=== PATIENT | female | born 2005 | race Caucasian/White ===

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

== ENCOUNTER 2023-02-02 12:24 | Outpatient (CLI) | payer OTHER, SELFPAY | END 2023-02-02 12:25 | disposition home or self-care (01) | PROVIDERS: PCP Physician Assistant; Visit Provider Obstetrics & Gynecology | DX: N83.209 Unspecified ovarian cyst, unspecified side (principal); Z01.818 Encounter for other preprocedural examination | CPT/HCPCS: 36415; 86850; 86900; 86901 ==

== ENCOUNTER 2023-02-07 01:36 | Day surgery (SDC) | payer OTHER, SELFPAY ==
[2023-01-31 15:41] VITALS: BMI 21.1
--- NOTE | 2023-01-31 15:44 | PC.NURSE ---
Report to the Outpatient Waiting Room, entrance under the green pavilion located off [facility], at time 1:00 on date 02/07/23. Planned Procedure Time: 3:00. Time changes happen often and if your time is changed the preop area will call you the afternoon before. - You and your visitor will be asked to self-screen and do not enter if you have any COVID symptoms. - A mask is optional within the hospital at this time. Patients may have clear liquids (water, carbonated beverages, clear teas, apple juice) until 3 hours prior to surgery with a maximum of 20 ounces. - No food from midnight until time of surgery Take the following medications with a SIP of water the morning of surgery: NONE DO NOT STOP ANY OF YOUR OTHER PRESCRIPTION MEDICATIONS PRIOR TO SURGERY ?EXCEPT THE FOLLOWING Medications to discontinue per physician: IBUPROFEN Date to take last dose: PER DR. DOHERTY Please no make-up, nail kiswahili, hairspray, perfume, deodorant, or body powder the day of surgery. No jewelry (including any body piercings) or valuables the day of surgery, leave them at home. Please take a shower or bath the night before, or the morning of, surgery with an antibacterial soap. Wear comfortable, loose fitting clothing. - Jewelry must be removed prior to entering the operating room. Rings and piercings that are not removed may be cut off. - The hospital will not accept responsibility for valuables. - Please leave all valuables, including medications, at home the day of surgery. If you are going home after surgery, a licensed hazmat truck driver must drive you home. - NO public transportation without another adult if you receive anesthesia. - We recommend that an adult stay with you for 24 hours following discharge. - We also recommend that you do not drive, make important decision, drink alcoholic beverages, or take any drugs that were not prescribed by your health care provider for at least 24 hours after your discharge time. Follow any additional instructions given to you from your surgeon. If you or anyone in your household have experienced Covid symptoms in the past week, please notify your surgeon or the nurse liaison at the phone number below for possible testing. Telephone instructions given to SARITA WALKER and asked if any additional questions and then verbalized understanding. Patient advised to call surgeon office or pre surgery nurse liaison [phone] if any additional questions.
[2023-02-07] VITALS (10 sets, daily range): BP systolic 97–110; BP diastolic 58–81; PULSE 51–81; RESP 12–20; TEMP 36.5; O2SAT 98–100
--- NOTE | 2023-02-07 12:12 | PM.IMHP ---
H&P: HPI History of Present Illness Date/Time: 02/07/23 12:12 Chief Complaint: Pain Narrative: 17 y/o nulligravida with a Kyleena IUD in place. She has had trouble with persistent pelvic pain. Ultrasound exam shows bilateral simple appearing adnexal cysts. Because of the longstanding nature of her pain, she is interested in surgical evaluation of her problem. Review of Systems Review of Systems: All systems reviewed & are unremarkable except as noted in HPI and below PMFSH Surgical History Surgical History History of tonsillectomy Social History Social History Smoking status: Never smoker Alcohol intake: never Substance use: never Substance use type: does not use Living arrangements: with family Spiritual care concerns: No Meds Home Medications and Allergies Home Medications Medication Instructions Recorded Confirmed Type levonorgestrel 17.5 mcg/24 hrs 1 device intrauterine ONCE 01/24/22 01/31/23 History (5yrs) 19.5mg intrauterine device (Kyleena) ibuprofen 400 mg tablet 400 mg PO Q6H PRN Pain 01/31/23 01/31/23 History Allergies Allergy/AdvReac Type Severity Reaction Status Date / Time No Known Allergies Allergy Verified 01/31/23 15:40 Exam Const: Orientation/consciousness: patient oriented x3 Other: Well-developed, well-nourished female in no acute distress. Neck: Thyroid: thyroid normal Lymphatic: no lymphadenopathy noted (in neck, axilla or inguinal nodes) Resp: Effort & Inspection: normal respiratory effort Auscultation: clear to auscultation bilaterally Cardio: Rate: regular rate Rhythm: regular rhythm Heart sounds: S1 normal heart sound present and S2 normal heart sound present GI: Other: ABD: Soft, nontender, nondistended. No guarding or rebound tenderness. No hepatosplenomegaly. : General: Yes no CVA tenderness Other: External genitalia: normal female hair distribution, without lesion. Urethral meatus: no lesion, non prolapsed. Bladder: no mass, nontender Vagina: well-estrogenized, without lesion or discharge. No cystocele or rectocele. Cervix: no lesion or discharge. Uterus: small, anteverted, freely mobile, nontender Adnexa: no mass or tenderness. Anus/perineum: no lesions, nontender Back/Spine/Pelvis: Back: no CVA tenderness Skin: General skin exam: normal color and no rashes or lesions noted Neuro: General: patient oriented x3 Extrem: Other: Extremities: nontender with no edema Psych: Mental Status: mental status grossly normal Affect: normal affect Assessment and Plan Assessment and plan (1) Pelvic pain: Code(s): R10.2 - Pelvic and perineal pain Status: Acute Assessment and Plan: A: Persistent pelvic pain. P: We reviewed medical as well as surgical approaches, and she prefers the latter. Specifically, I have offered her diagnostic laparoscopy with possible bilateral ovarian cystectomies. She understands risks of surgery to include risks of anesthesia, risks of pain, infection, bleeding, blood products, thromboembolic phenomena and damage to adjacent structures such as bowel, bladder, ureters, blood vessels and nerves. She understands all these risks and elects to proceed with surgery.
--- NOTE | 2023-02-07 13:25 | WPDHPUPDATE1 ---
History and Physical Update Update Date/Time: 02/07/23 13:25 History and Physical has been reviewed, including an updated exam of the patient. There are NO changes in the patient's condition. Risks, benefits, and alternatives have been discussed and questions answered. Patient agrees to proceed with procedure.
[2023-02-07] MEDS: LACTATED RINGERS 1,000 ML 30 ML IV CONT ×2 (13:30→15:55)
[2023-02-07] MEDS: ACETAMINOPHEN 500 MG TABLET 1000 MG PO (13:30)
[2023-02-07] MEDS: KETOROLAC 15 MG/ML VIAL (*BKC) IV PUSH (13:30)
--- NOTE | 2023-02-07 13:39 | WPDANESEPPF ---
Anes - Initial Pre Proc Eval Procedure: Operation Date: 02/07/23 15:00 Proposed Procedures p Diagnostic Laparoscopy, Possible Bilateral Ovarian Cystectomy - James Lawrence MD Date/Time: 02/07/23 13:39 Surgeon: James Lawrence MD Pre Op Diagnosis: Pelvic Pain, Bilateral Ovarian Cyst Patient Data Age: 17 Gender: F Height: 1.61 m Weight: 54.9 kg Allergies Allergy/AdvReac Type Severity Reaction Status Date / Time No Known Allergies Allergy Verified 01/31/23 15:40 Home Medications Medication Instructions Recorded Confirmed Type levonorgestrel 17.5 mcg/24 hrs 1 device intrauterine ONCE 01/24/22 01/31/23 History (5yrs) 19.5mg intrauterine device (Kyleena) ibuprofen 400 mg tablet 400 mg PO Q6H PRN Pain 01/31/23 01/31/23 History Patient hx anesthesia problems: none Family hx anesthesia problems: none Results Review: All pre-operative results and documents have been reviewed as part of the pre-operative evaluation. [facility], [facility] Surgical History Surgical History History of tonsillectomy Social History Social History Smoking status: Never smoker Alcohol intake: never Substance use: never Substance use type: does not use Living arrangements: with family Spiritual care concerns: No Anes - Eval Final PreProcedure Day of Procedure 02/07/23 13:39 Patient weight: normal Heart: regular rate and rhythm Lungs: clear to auscultation Airway: Mallampati scale class 1 Neurological: alert and oriented Last oral intake: >/= 8 hours ASA classification: I Emergent: no Anesthetic plan: proceed Anesthesia type and monitoring: general ETT and standard monitoring Results Review: All pre-operative results and documents have been reviewed as part of the pre-operative evaluation. Informed Consent: The patient's anesthetic plan and its attendant risks and benefits were discussed with the patient/family/POA. Questions were solicited and answers provided to the satisfaction of the patient/family/POA.
[2023-02-07] MEDS: SCOPOLAMINE 1.5 MG PATCH TRANSDERM (14:13)
--- NOTE | 2023-02-07 15:50 | W.PM.PROC2 ---
Procedure Note - Detailed Date of Procedure 02/07/23 Pre-op Diagnosis Pelvic pain Post-op Diagnosis Same Procedure Performed Diagnostic laparoscopy Surgeon James Lawrence MD Anesthesia General Findings On speculum exam, the IUD strings were noted at the external cervical os. On laparoscopy, the uterus, bilateral ovaries, bilateral Fallopian tubes, bilateral round and uterosacral ligaments, anterior and posterior cul de sac all unremarkable. Vermiform appendix not seen. Liver and gallbladder unremarkable. Large bowel seemed very full of stool. Description of Procedure The patient was taken to the operating room where general endotracheal anesthesia was administered. She was prepared and draped in the usual sterile fashion in the dorsal lithotomy position. The bladder was drained with a red rubber catheter. A sterile speculum was inserted into the vagina and the anterior lip of the cervix was grasped with a single-toothed tenaculum. The acorn uterine manipulator was placed. The speculum was withdrawn. Gloves were changed and attention was turned to the abdomen. An infraumbilical skin incision was made with a scalpel. The abdomen was tented and a 5 millimeter bladeless trocar trocar was advanced under direct laparoscopic visualization. Pneumoperitoneum was administered using carbon dioxide gas. A survey of the pelvis and abdomen yielded the findings noted above. Hemostasis was excellent. The trocar was withdrawn and the gas was allowed to escape. The skin incision was reapproximated using 4-0 Vicryl in interrupted subcuticular fashion. Dermaflex was applied externally. The vaginal instrumentation was withdrawn and hemostasis was excellent here as well. Sponge, lap, needle and instrument counts were correct. The patient was awakened and taken to recovery in stable condition. I was present and scrubbed through the entire procedure. Estimated Blood Loss 5 Drains No Packing No Pathology None sent Complications None Condition Stable Disposition PACU
[2023-02-07] MEDS: fentaNYL CITRATE INJ (*CRX) 100 MCG/2 ML VIAL 25 MCG IV PUSH ×4 (16:11→16:33)
[2023-02-07] MEDS: oxyCODONE HCL (*CRX) 5 MG TAB IR PO (17:11)
== END 2023-02-07 17:45 | disposition home or self-care (01) ==
PROVIDERS: PCP Physician Assistant; Visit Provider Obstetrics & Gynecology
PROC: (CPT 49320; principal; 2023-02-07 15:00)
DX: R10.2 Pelvic and perineal pain (principal); Z97.5 Presence of (intrauterine) contraceptive device
CPT/HCPCS: 49320; 36415; 86850; 86900; 86901; A9270; J1100; J1885; J2250; J2405; J2704; J3010; J7120

== ENCOUNTER 2024-01-09 19:32 | Emergency (ER) | payer OTHER, SELFPAY ==
--- NOTE | ~2024-01-09 | XR_ITS ---
XR foot RT min 3V Ordering provider: Shabbir Ceja MD History: . injury, pain, swelling . Comparison: None. FINDINGS: BONES: No acute fracture or dislocation. JOINT SPACES: Normal. No tarsal coalition. SOFT TISSUES: Normal. IMPRESSION: No acute osseous abnormality of the right foot. Reviewed, dictated and finalized at location A.
[2024-01-09 19:37] VITALS: BP 108/53; PULSE 86; RESP 15; TEMP 36.2; O2SAT 100
--- NOTE | 2024-01-09 20:03 | ED.GENADULT ---
HPI - General Adult General Chief complaint: Extremity Injury, Lower Stated complaint: r foot pain Time Seen by Provider: 01/09/24 19:50 History of Present Illness HPI narrative: 18-year-old female presents to the emergency department for evaluation for right foot pain. patient reports on Sunday she dropped a heavy Tote on her foot. Patient states that she did try to tolerate the pain but feels that has been worsening. Related Data Home Medications Medication Instructions Recorded Confirmed levonorgestrel 17.5 mcg/24 hr (up 1 device intrauterine ONCE 01/24/22 02/07/23 to 5 yrs) 19.5mg intrauterine device (Kyleena) ibuprofen 400 mg tablet 400 mg PO Q6H PRN Pain 01/31/23 02/07/23 Allergies Allergy/AdvReac Type Severity Reaction Status Date / Time No Known Allergies Allergy Verified 01/09/24 19:33 Review of Systems Review of Systems: All systems reviewed & are unremarkable except as noted in HPI and below PMFSH Surgical History Surgical History History of tonsillectomy Social History Social History Smoking status: Never smoker Alcohol intake: never Substance use: never Substance use type: does not use Living arrangements: with family Spiritual care concerns: No Exam Narrative: APPEARANCE: Well appearing, no pain, no distress, well-nourished. HEAD: normocephalic, atraumatic. EYES: PERRLA/EOMI, conjunctivae clear. NOSE: Normal no drainage EARS:TMS clear with good light reflex. THROAT: Pharynx clear, no exudate. NECK: Supple. No adenopathy, no masses. RESPIRATORY: Airway patent, respirations nonlabored. Clear to auscultation bilaterally, no rales, rhonchi, wheezing. CARDIOVASCULAR: Regular rate and rhythm without murmurs rubs or gallops. ABDOMINAL: Soft, nontender, nondistended, normal bowel sounds MUSCULOSKELETAL: Moves all extremities. Strength/ROM intact, No edema, No calf tenderness. NEURO: Alert. Cranial nerves II through XII intact. Good gait. Good coordination SKIN: Warm, dry. Normal Color Course Vital Signs Vital signs: Vital Signs Temperature 97.2 F L 01/09/24 19:37 Pulse Rate 86 01/09/24 19:37 Respiratory Rate 15 01/09/24 19:37 Blood Pressure 108/53 L 01/09/24 19:37 Pulse Oximetry 100 01/09/24 19:37 Oxygen Delivery Room Air 01/09/24 19:37 Temperature 97.2 F L 01/09/24 19:37 Pulse Rate 86 01/09/24 19:37 Respiratory Rate 15 01/09/24 19:37 Blood Pressure 108/53 L 01/09/24 19:37 Pulse Oximetry 100 01/09/24 19:37 Oxygen Delivery Room Air 01/09/24 19:37 Medical Decision Making MDM Narrative Medical decision making narrative: 18-year-old female presents emergency department for evaluation for foot pain. X-ray was negative for fracture dislocation. Patient was provided a hard sole shoe. Patient declined crutches for limited weight-bearing. Patient was advised to take Tylenol and ibuprofen for pain control. All questions concerns were addressed. Differential Diagnosis Differential Diagnosis: Foot fracture, foot contusion Vital Signs Vital Signs: Vital Signs Temperature 97.2 F L 01/09/24 19:37 Pulse Rate 86 01/09/24 19:37 Respiratory Rate 15 01/09/24 19:37 Blood Pressure 108/53 L 01/09/24 19:37 Pulse Oximetry 100 01/09/24 19:37 Oxygen Delivery Room Air 01/09/24 19:37 Temperature 97.2 F L 01/09/24 19:37 Pulse Rate 86 01/09/24 19:37 Respiratory Rate 15 01/09/24 19:37 Blood Pressure 108/53 L 01/09/24 19:37 Pulse Oximetry 100 01/09/24 19:37 Oxygen Delivery Room Air 01/09/24 19:37 Discharge Plan Discharge Clinical Impression: Contusion of foot Patient Disposition: Home, Self-Care Condition: Stable Instructions: Antibiotic Form, Foot Contusion (ED) Additional Instructions: Tylenol and ibuprofen for pain control. Postop shoe for comfort. Crutches for osman
== END 2024-01-09 20:46 | disposition home or self-care (01) ==
PROVIDERS: Emergency Provider Emergency Medicine; PCP Physician Assistant
DX: S90.31XA Contusion of right foot, initial encounter (principal); X58.XXXA Exposure to other specified factors, initial encounter
CPT/HCPCS: 73630; 99283

== ENCOUNTER 2025-01-11 20:22 | Emergency (ER) | payer OTHER, SELFPAY ==
[2025-01-11] VITALS (16 sets, daily range): BP systolic 91–121; BP diastolic 56–76; PULSE 92–96; RESP 17–20; TEMP 36.7–37.2; O2SAT 98–100
--- NOTE | ~2025-01-11 | CT_ITS ---
CT abdomen pelvis w con Clinical History: LLQ abdominal pain . Comparison: None Technique: Axial images lung bases to symphysis pubis 100 mL Omnipaque Coronal, sagittal reformats CT images acquired with automatic exposure control for dose reduction DLP: 597 mGy-cm Findings: Lung bases: Clear. Visualized heart and pericardium: Unremarkable. Liver: Periportal edema, nonspecific but possibly overhydration. Gallbladder: Wall thickening but contracted. Spleen: Unremarkable. Pancreas: Unremarkable. Adrenal glands: Unremarkable. Kidneys: Right kidney- No hydronephrosis. No renal stones. Left kidney- No hydronephrosis. No renal stones. Distal esophagus/stomach: Unremarkable. Small bowel loops: Normal caliber and wall thickness. Colon: Normal caliber and wall thickness. Normal RLQ appendix. Nodes: No enlarged nodes. Peritoneum: No ascites. No free air. Urinary bladder: Unremarkable. Uterus: Unremarkable. Adnexa: No masses. Tampon within vaginal vault. Bones: No acute bony abnormality. Soft tissues: Unremarkable. Aorta: No aneurysm or dissection. IVC: Unremarkable. Main portal vein/SMV/splenic vein: Patent. IMPRESSION: 1. No definite acute abnormality. Reviewed, dictated and finalized at location R.
--- OUTSIDE RECORDS SUMMARY | 2025-01-11 20:24 | XMS_ITS | Clinical Summary ---
Author Organization [facility] Address [address] [place] [id number] Care Team Providers Care Sweatband Separator Name Role Phone Heather Barone Primary Care Provider [phone] Allergies No known active allergies Medications No known medications Social History Tobacco Use Types Packs/Day Years Used Date Smoking Tobacco: Never Assessed Comments No Sex and Gender Information Value Date Recorded Sex Assigned at Not on file Legal Sex Female 7:31 PM CDT Gender Identity Not on file Sexual Orientation Not on file Last Filed Vital Signs Vital Sign Reading Time Taken Comments Blood Pressure 123/74 08/20/2023 8:44 AM CDT Pulse 84 08/20/2023 8:44 AM CDT Temperature 36.6 C (97.9 F) 08/20/2023 8:44 AM CDT Respiratory Rate 19 08/20/2023 8:44 AM CDT Oxygen Saturation 100% 08/20/2023 8:44 AM CDT Inhaled Oxygen Concentration - - Weight 54 kg (119 lb) 08/20/2023 8:44 AM CDT Height 160 cm (5' 3) 08/20/2023 8:44 AM CDT Body Mass Index 21.08 08/20/2023 8:44 AM CDT Plan of Treatment Health Maintenance Due Date Last Done Comments Cervical Cancer Screening Pap Smear (Age 21 to 29) Every 3 Years 2003 Cervical Cancer Screening 2003 Annual Physical 2006 Meningococcal B Vaccine (1 of 2 - Standard) 2019 Hepatitis C 2021 HPV Vaccines (2 - 3-dose series) 12/30/2021 12/02/2021 DTaP, Tdap and Td Vaccines (7 - Td or Tdap) 12/02/2024 12/02/2014, 09/16/2008, 06/03/2004, Additional history exists COVID-19 Vaccine ( season) 2024 11/15/2020, 10/25/2020 Hepatitis B Vaccines Completed 2003, 2003, 2003 Meningococcal Vaccine Completed 02/24/2021, 015 Pneumococcal Vaccine: Pediatrics (0 to 5 Years) and At-Risk Patients (6 to 49 Years) Aged Out No longer eligible based on patient's age to complete this topic RSV Immunizations Under 20 Months Aged Out No longer eligible based on patient's age to complete this topic Insurance [employer]SE[employer] OF [employer] [facility] Care Teams Sweatband Separator Relationship Specialty Start Date End Date Heather Barone PA [address], [place] [id number] PCP - General FAMILY PRACTICE 08/20/23
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
--- OUTSIDE RECORDS SUMMARY | 2025-01-11 20:24 | XMS_ITS | Clinical Summary ---
Author Organization [facility] Address [address] [place] [address] Care Team Providers Care Diesel Mechanic Apprentice Name Role Phone Dixie Kelley MD Primary Care Provider [phone] Source Comments [facility],non-owned Affiliates and Associated Physician Practices is amultiple site organization consisting of ambulatory clinics and hospital sitesin [place], [place], [place] and [place]. This disclosure is being madepursuant to the Care Everywhere program and may not contain all information available regarding this patient. Last updated 18.[facility] Allergies No known active allergies Medications * Be aware that medications may not be up to date on this document. Alwaysverify current medications with the patient. acetaminophen (TYLENOL) 160 MG/5ML SOLN solution Take 15.65 mL by mouth every 6 hours as needed for Headache. 09/14/2014 Active Family History Medical History Relation Name Comments Breast Cancer at or under age 50 Mother Relation Name Status Comments Mother Social History Tobacco Use Types Packs/Day Years Used Date Smoking Tobacco: Passive Smo ke Exposure - Never Smoker Alcohol Use Standard Drinks/Week Comments No 0 (1 standard drink = 0.6 oz pur e alcohol) Comments No Sex and Gender Information Value Date Recorded Sex Assigned at Not on file Legal Sex Female 2:34 PM CDT Gender Identity Not on file Sexual Orientation Not on file Last Filed Vital Signs Vital Sign Reading Time Taken Comments Blood Pressure 100/62 06/27/2016 4:41 PM HOSPICE RN Pulse 63 06/27/2016 4:41 PM HOSPICE RN Temperature 36.7 C (98.1 F) 06/27/2016 4:41 PM HOSPICE RN Respiratory Rate 16 06/27/2016 4:41 PM HOSPICE RN Oxygen Saturation 99% 06/27/2016 4:41 PM HOSPICE RN Inhaled Oxygen Concentration - - Weight 52.6 kg (116 lb) 06/27/2016 4:41 PM HOSPICE RN Height 157.5 cm (5' 2) 06/27/2016 4:41 PM HOSPICE RN Body Mass Index 21.22 06/27/2016 4:41 PM HOSPICE RN Plan of Treatment Health Maintenance Due Date Last Done Comments HIV SCREENING 2018 HPV VACCINE (1 - 3-dose series) 2018 CHLAMYDIA/GONORRHEA SCREENING 2019 MENINGOCOCCAL (Group B) VACC INE SHARED DECISION-MAKING (1 of 2 - Standard) 2019 HEPATITIS C SCREENING 05/27/2021 DTAP/TDAP/TD VACCINES (1 - Tdap) 2022 HEPATITIS B VACCINE (1 of 3 - 19+ 3-dose series) 2022 DEPRESSION SCREENING 04/23/2024 COVID-19 VACCINE (1 - 2023-2 5 season) 2024 INFLUENZA VACCINE (#1) 2024 ZOSTER VACCINE (1 of 2) 2053 HIB VACCINE Aged Out No longer eligi ble based on patient's age to complete this topic MENINGOCOCCAL GROUPS A/C/Y/W VACCINE Aged Out No longer eligible b ased on patient's age to complete this topic PNEUMOCOCCAL VACCINE Aged Out No long er eligible based on patient's age to complete this topic Insurance HO Care Teams Diesel Mechanic Apprentice Relationship Specialty Start Date End Date Dixie Kelley MD NPI: [id number] [place] [address] [phone] PCP - General Family Medicine 09/13/14
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
[2025-01-11] MEDS: ONDANSETRON INJ 4 MG/2 ML VIAL IV PUSH (21:49)
[2025-01-11] MEDS: SODIUM CHLORIDE 0.9% IV 1,000 ML 999 ML IV CONT (21:49)
[2025-01-11 22:00] LABS: Hematocrit 32.3 % (37.0-47.0); Hemoglobin 11.1 g/dL (12.0-15.0); Immature Granulocyte Percent A 0.3 % (0-0.5); Lymphocytes Absolute Auto 1.88 K/mm3 (0.9-3.2); Mean Corpuscular HGB Conc 34.4 g/dl (32-36); Mean Corpuscular Hemoglobin 30.0 pg (26-34); Mean Corpuscular Volume 87.3 fl (80-100); Nucleated Red Blood Cells Absolute Auto 0.000 K/mm3 (0.0-0.012); Nucleated Red Blood Cells Perc 0.0 % (0.0-0.2); Platelet Count Result 166 k/mm3 (150-375); Red Blood Count 3.70 M/mm3 (4.2-5.4); White Blood Count 7.5 K/mm3 (4.5-10.0)
[2025-01-11 22:02] LABS: Add Urine Microscopic? NO; Appearance Urine Clear (Clear); Glucose Urine UA Negative (Negative); Leukocyte Esterase Ur Negative LEU/UL (Negative); Nitrate Urine Negative (Negative); Specific Grav Ur 1.019 (1.001-1.035)
[2025-01-11 22:18] LABS: Alanine Aminotransferase 21 U/L (6-35); Albumin Level 4.0 g/dL (3.5-5.1); Alkaline Phosphatase 53 U/L (38-126); Anion Gap 7 mmol/L (4-12); Aspartate Amino Transferase 24 U/L (14-36); Bilirubin,Total 0.6 mg/dL (0.2-1.3); Blood Urea Nitrogen 12 mg/dL (7-17); Calcium 9.0 mg/dL (8.4-10.2); Carbon Dioxide 23 mmol/L (22-30); Chloride 105 mmol/L (98-107); Estimated CRCL calculation 94 ml/min; Estimated Glomerular Filt Rate > 60; Glucose 108 mg/dL (65-110); Lipase 104 U/L (23-300); Potassium 3.5 mmol/L (3.4-5.0); Sodium 135 mmol/L (137-145); Total Protein 6.7 g/dL (6.3-8.2)
[2025-01-11 22:42] LABS: Pregnancy On Board Control Positive
[2025-01-12 00:21] VITALS: BP 105/63; PULSE 58; RESP 16; TEMP 36.6; O2SAT 98
== END 2025-01-12 00:22 | disposition home or self-care (01) ==
PROVIDERS: Emergency Provider Registered Nurse; PCP Physician Assistant
DX: K80.20 Calculus of gallbladder without cholecystitis without obstruction (principal); K76.0 Fatty (change of) liver, not elsewhere classified
CPT/HCPCS: 36415; 74177; 80053; 81003; 81025; 83690; 85025; 96361; 96374; 99284; J2405; J7030; Q9967

== ENCOUNTER 2025-01-29 07:42 | Outpatient (CLI) | payer OTHER, SELFPAY ==
--- NOTE | ~2025-01-29 | US_ITS ---
ULTRASOUND ABDOMEN LIMITED (RIGHT UPPER QUADRANT) Clinical History: R10.13 - Epigastric pain Comparison: CT abdomen and pelvis 01/11/2025 Technique: Right upper quadrant sonography Findings: Liver: Normal size. Normal echotexture. No intrahepatic biliary ductal dilatation. Normal hepatopedal flow main portal vein. Common Duct: Normal caliber. 3 mm. Gallbladder: No stones. No wall thickening. No pericholecystic fluid. Pancreas: Unremarkable. Right kidney: Unremarkable. Retrohepatic IVC: Unremarkable. IMPRESSION: 1. No acute findings. Reviewed, dictated and finalized at location R. IMPRESSION: 1. No acute findings.
== END 2025-01-29 07:43 | disposition home or self-care (01) ==
LOC: MICIMG 07:43
PROVIDERS: PCP Physician Assistant; Visit Provider Surgery
DX: R10.13 Epigastric pain (principal)
CPT/HCPCS: 76705

== ENCOUNTER 2025-01-29 09:33 | Outpatient (CLI) | payer OTHER, SELFPAY ==
--- NOTE | ~2025-01-29 | NM_ITS ---
EXAMINATION: NM_HEPATWP_NM DATE: 01/29/2025 11:57 INDICATION: Epigastric abdominal pain. COMPARISON: Ultrasound 01/29/2025 TECHNIQUE: 5 mCi Tc-99m mebrofenin (Choletec) was administered intravenously. Scintigraphic images of the abdomen were obtained for one hour. Then, 1 mcg sincalide (Kinevac) IV was administered, and imaging was continued for 30 minutes. FINDINGS: There is normal clearance of radiotracer from the blood pool. There is homogeneous tracer uptake by the liver. Activity progresses to the bowel and gallbladder. Gallbladder ejection fraction (GBEF) was 83%. Note that most patients with gallbladder dysfunction have GBEF < 35%, which overlaps with the broad normal range of 10-90%. IMPRESSION: 1. Normal hepatobiliary scintigraphy. Reviewed, dictated and finalized at location E.
== END 2025-01-29 09:34 | disposition home or self-care (01) ==
PROVIDERS: PCP Physician Assistant; Visit Provider Surgery
DX: R10.13 Epigastric pain (principal)
CPT/HCPCS: 78227; A9537; J2805